=== PATIENT | female | born 1960 | race Caucasian/White ===

== ENCOUNTER 2017-09-08 11:08 | Outpatient (CLI) | payer BC ==
[2017-09-08 12:06] LABS: #Basophils 0.1 thou/uL (0.0-0.2); #Eosinphils 0.1 thou/uL (0.0-0.7); #Lymphocytes 1.9 thou/uL (1.20-3.40); #Monocytes 0.6 thou/uL (0.11-0.59); #Neutrophils 4.4 thou/uL (1.40-6.50); %Basophils 1.4 % (0.0-1.0); %Eosinophils 1.5 % (0.0-10.0); %Lymphocytes 27.4 % (21.0-51.0); %Monocytes 7.7 % (0.0-10.0); Hemoglobin 13.6 g/dL (12.0-16.0); Mean Corpuscular HGB CONC 35.6 g/dL (32.0-36.0); Mean Corpuscular Hemoglobin 30.3 pg (27.0-31.0); Mean Corpuscular Volume 85.2 fL (78.0-98.0); Mean Platelet Volume 7.4 fL (7.4-10.4); Platelet Count 219 thou/uL (130-400); RBC Distribution Width 11.9 % (11.5-14.5); Red Blood Cell (RBC) Count 4.47 mill/uL (4.20-5.40)
[2017-09-08 12:34] LABS: Anion Gap 10 mmol/L (10-20); BUN (Urea Nitrogen) 10 mg/dL (9.8-20.1); Calc. Creatinine Clearance 0 mL/min (70-130); Calcium 9.3 mg/dL (7.8-10.44); Carbon Dioxide 27 mmol/L (22-29); Chloride 106 mmol/L (98-107); Estimated GFR-MDRD 79; Glucose 102 mg/dL (70-105); Potassium 4.2 mmol/L (3.5-5.1); Sodium 139 mmol/L (136-145)
--- NOTE | 2017-09-08 15:41 | EKG ---
Test Reason : Blood Pressure : / mmHG Vent. Rate : 053 BPM Atrial Rate : 053 BPM P-R Int : 140 ms QRS Dur : 094 ms QT Int : 406 ms P-R-T Axes : 041 056 035 degrees QTc Int : 380 ms Sinus bradycardia Cannot rule out Anterior infarct , age undetermined Abnormal ECG No previous ECGs available Confirmed by AUSTIN FREY, DR. Ray (4) on 09/08/2017 3:41:21 PM Referred By: ENDA Confirmed By:DR. Cory AVILA MD
== END 2017-09-08 11:09 | disposition home or self-care (01) ==
LOC: LABBT 11:08
PROVIDERS: ATTEND Specialist
DX: Z01.818 Encounter for other preprocedural examination (principal); Z91.89 Other specified personal risk factors, not elsewhere classified
CPT/HCPCS: 80048; 85025; 93005; 93010

== ENCOUNTER 2017-09-09 06:03 | Inpatient (IN) | payer BC ==
[2017-09-08 11:24] VITALS: BMI 29.4
[2017-09-09] MEDS ORDERED: Levofloxacin 500 mg/D5W 100 ml Premix Bag ONE (06:41)
[2017-09-09] MEDS ORDERED: Ketorolac Tromethamine 30 MG/ML VIAL ONE (06:41)
[2017-09-09] MEDS ORDERED: Isosulfan Blue 50 MG/5 ML VIAL ONE (06:43)
[2017-09-09] MEDS ORDERED: Bupivacaine/Epinephrine 0.25% 30 ML VIAL ONE (06:43)
[2017-09-09] MEDS ORDERED: Fentanyl 250 MCG/5 ML VIAL ONE (07:00)
[2017-09-09] MEDS ORDERED: Midazolam HCl 2 mg/2 ml Vial ONE (07:01)
[2017-09-09] MEDS ORDERED: Promethazine HCl 25 MG/ML VIAL ONE (11:50)
[2017-09-09] MEDS ORDERED: Fentanyl 100 MCG/2 ML VIAL ONE (12:25)
[2017-09-09] MEDS ORDERED: Promethazine HCl 25 MG/ML VIAL IM PRN (14:02)
[2017-09-09] MEDS ORDERED: Dextrose 5% in Water 1,000 ML IV PRN (14:02)
[2017-09-09] MEDS ORDERED: Ondansetron HCl/PF 4 MG/2 ML Vial IVP PRN (14:02)
[2017-09-09] MEDS ORDERED: Morphine 4 MG/ML VIAL SLOW IVP PRN (14:02)
[2017-09-09] MEDS ORDERED: HYDROcodone/Acetaminophen 7.5/325 mg Tablet PO PRN ×2 (14:02)
[2017-09-09] MEDS ORDERED: hydrALAZINE 20 MG/ML VIAL SLOW IVP PRN (14:02)
[2017-09-09] MEDS ORDERED: Dextrose 50% Abboject 50 ML SYRINGE SLOW IVP PRN (14:02)
[2017-09-09] MEDS ORDERED: traMADol HCl 50 MG TAB PO PRN (14:31)
[2017-09-09] MEDS: D5 1/2 NS w/20 mEq KCL 1,000 ML IV SCH (15:03)
[2017-09-09] MEDS: Ketorolac Tromethamine 30 MG/ML VIAL IVP SCH (17:28)
[2017-09-09] MEDS: Famotidine 20 MG TAB PO SCH (21:21)
[2017-09-09] MEDS: Acetaminophen 1,000 MG in Premix Bag 1 BAG IVPB SCH (21:24)
[2017-09-10] MEDS: Acetaminophen 1,000 MG in Premix Bag 1 BAG IVPB SCH ×2 (04:04→09:57)
[2017-09-10] MEDS: D5 1/2 NS w/20 mEq KCL 1,000 ML IV SCH (04:05)
[2017-09-10 04:22] LABS: #Lymphocytes 1.7 thou/uL (1.20-3.40); #Neutrophils 11.7 thou/uL (1.40-6.50); %Basophils 0.2 % (0.0-1.0); %Eosinophils 0.1 % (0.0-10.0); %Lymphocytes 11.7 % (21.0-51.0); %Monocytes 7.1 % (0.0-10.0); %Neutrophils 80.9 % (42.0-75.0); Hemoglobin 11.2 g/dL (12.0-16.0); Mean Corpuscular HGB CONC 35.6 g/dL (32.0-36.0); Mean Corpuscular Hemoglobin 30.4 pg (27.0-31.0); Mean Corpuscular Volume 85.5 fL (78.0-98.0); Mean Platelet Volume 7.1 fL (7.4-10.4); Platelet Count 202 thou/uL (130-400); RBC Distribution Width 11.8 % (11.5-14.5); Red Blood Cell (RBC) Count 3.68 mill/uL (4.20-5.40); White Blood Cell (WBC) Count 14.4 thou/uL (4.8-10.8)
[2017-09-10] MEDS: Ketorolac Tromethamine 30 MG/ML VIAL IVP SCH ×2 (06:29)
[2017-09-10] MEDS: Famotidine 20 MG TAB PO SCH (08:38)
[2017-09-10 09:11] VITALS: BP 132/60; TEMP 98
--- NOTE | 2017-09-11 00:50 | OP ---
DATE OF PROCEDURE: 09/09/2017 PREOPERATIVE DIAGNOSIS: Increased risk of breast cancer. POSTOPERATIVE DIAGNOSIS: Increased risk of breast cancer. OPERATION PERFORMED: Bilateral nipple-sparing mastectomy. SURGEON: Sergio Templeton M.D. ANESTHESIA: General endotracheal. INDICATIONS: The patient underwent genetic evaluation secondary to finding of breast cancer in her m other. Although, she was BRCA negative, her lifetime risk of breast cancer was estimated at 29%. Sh aydee, therefore, desired to pursue bilateral mastectomy with planned reconstruction. She was taken to [facility] operating at this time for bilateral nipple-sparing mastectomy. DESCRIPTION OF OPERATION: Informed consent was obtained. The patient was taken to the operating denisse where general endotracheal anesthesia was obtained with the patient in supine position. The infram ammary crease was marked in both breasts preoperatively. Her bilateral breasts and chest wall were p repped with ChloraPrep and draped in sterile fashion. Attention was turned first to the right breast. An inframammary incision was created beginning about 8 cm from the midline. The length of the incision was about 10 cm in length. Dissection was artem d through skin and subcutaneous tissue. Dissection was initially carried out between the breast and the pectoral fascia, elevating the breast off of the pectoral fascia throughout the entire underside of the breast. I then carefully dissected the cutaneous flap off of the breast, making sure to remov e all breast tissue, but trying to leave an appropriate thickness of subcutaneous fat under the skin. Meticulous hemostasis was maintained with the plasma blade during the dissection. The entire breas t specimen was removed intact. It was tagged for orientation with suture and passed off this patholo gic specimen. The wound was extensively irrigated with saline. Meticulous hemostasis was ensured. A #19 round fluted drain was brought out laterally and inferiorly. It was secured externally with a 3-0 nylon suture. The incision was closed using 3-0 and 4-0 Monocryl suture and Dermabond was placed externally. Attention was turned to the left breast. A mirror image incision was created and the exact same oper ation was performed. There were no complications on either side. Blood loss was minimal during the entire operation. She tolerated the procedure well and remained in stable condition throughout the operation. The chest w as then wrapped circumferentially using the Isoband with gauze, fluffs across bilateral chest wall. She was taken to recovery room in stable condition.
== END 2017-09-10 11:01 | disposition home or self-care (01) | DRG 585 ==
LOC: SDC 06:03 → ONC 13:57
PROVIDERS: ADMIT Specialist; ATTEND Specialist
PROC: 0HTV0ZZ Resection of Bilateral Breast, Open Approach (ICD-10-PCS; principal; 2017-09-09)
DX: Z40.01 Encounter for prophylactic removal of breast (principal); Z80.3 Family history of malignant neoplasm of breast
CPT/HCPCS: 36415; 85025; J0131; J1885; J1956; J2250; J2550; J3010; Q9968

== ENCOUNTER 2017-10-15 11:00 | Day surgery (SDC) | payer BC ==
[2017-10-14 13:59] VITALS: BMI 29.1
[2017-10-15] MEDS ORDERED: Clindamycin/D5W 900 mg/50 ml Premix Bag ONE (11:48)
[2017-10-15] MEDS ORDERED: Heparin 5,000 UNITS/ML VIAL ONE (11:48)
[2017-10-15] MEDS ORDERED: Levofloxacin 500 mg/D5W 100 ml Premix Bag ONE (11:48)
[2017-10-15] MEDS ORDERED: Sodium Chloride 0.9% 20 ML ONE (11:58)
[2017-10-15] MEDS ORDERED: Bupivacaine/Epinephrine 0.25% 30 ML VIAL ONE (11:58)
[2017-10-15] MEDS ORDERED: Gentamicin 80 MG/2 ML VIAL ONE ×2 (11:58→14:12)
[2017-10-15] MEDS ORDERED: Fentanyl 100 MCG/2 ML VIAL ONE (12:21)
[2017-10-15] MEDS ORDERED: Midazolam HCl 2 mg/2 ml Vial ONE (12:21)
[2017-10-15] MEDS ORDERED: Fentanyl 250 MCG/5 ML VIAL ONE (12:55)
[2017-10-15] MEDS ORDERED: Promethazine HCl 25 MG/ML VIAL ONE (12:56)
[2017-10-15] MEDS ORDERED: traMADol HCl 50 MG TAB ONE (18:05)
--- NOTE | 2017-10-15 18:45 | OP ---
DATE OF PROCEDURE: 10/15/2017 PREOPERATIVE DIAGNOSES: 1. Breast cancer. 2. Status post bilateral mastectomy. POSTOPERATIVE DIAGNOSES: 1. Breast cancer. 2. Status post bilateral mastectomy. PROCEDURES: 1. Bilateral placement of tissue inventory worker (43632.50). 2. Placement of Strattice acellular dermal matrix (8 x 20 cm per side, 320 cm2 total). PROCEDURE IN DETAIL: Following induction of adequate anesthesia, the patient was prepped and draped in the usual sterile fashion in the supine position. The existing inframammary crease scar was incis ed. Dissection was carried sharply down through the subcutaneous tissue to the underlying pectoralis fascia. Subsequently, an adequate submuscular pocket was created with release of the inferior attac hments of the pectoralis major muscle. The pocket was copiously irrigated and inspected for meticulo us hemostasis prior to donning new gloves and putting a skin barrier down. The Strattice was placed along the inferior hemisphere of the tissue inventory worker and secured at the 3 and 9 o'clock suture tabs a s well as inferiorly at the inframammary crease. It was secured anteriorly to the flap as well. The Strattice was secured with 2-0 PDS suture. The incision was closed with 3-0 PDS suture and 3-0 [place] cryl suture. The tissue inventory worker was accessed anteriorly and filled to a total volume of 250 mL of n ormal saline. A similar procedure was done on each side except for the right pectoralis major was into 2 leaves of muscle that were repaired anteriorly with 2-0 PDS suture. The patient tolerated the proced ure well.
== END 2017-10-15 18:30 | disposition home or self-care (01) ==
LOC: SDC 11:00
PROVIDERS: ATTEND Plastic Surgery
PROC: 0HHV0NZ Insertion of Tissue Expander into Bilateral Breast, Open Approach (ICD-10-PCS; principal; 2017-10-15)
DX: Z42.1 Encounter for breast reconstruction following mastectomy (principal); Z85.3 Personal history of malignant neoplasm of breast; Z79.899 Other long term (current) drug therapy; Z88.0 Allergy status to penicillin; Z88.1 Allergy status to other antibiotic agents; Z88.2 Allergy status to sulfonamides; Z90.13 Acquired absence of bilateral breasts and nipples; Z90.49 Acquired absence of other specified parts of digestive tract
CPT/HCPCS: A4216; J1580; J1644; J1956; J2250; J2550; J3010; J3370; J3490

== ENCOUNTER 2017-12-01 11:03 | Inpatient (IN) | payer BC ==
[2017-12-01 12:16] LABS: #Basophils 0.2 thou/uL (0.0-0.2); #Eosinphils 0.2 thou/uL (0.0-0.7); #Lymphocytes 2.1 thou/uL (1.20-3.40); #Monocytes 1.2 thou/uL (0.11-0.59); #Neutrophils 14.6 thou/uL (1.40-6.50); %Basophils 0.8 % (0.0-1.0); %Lymphocytes 11.7 % (21.0-51.0); %Monocytes 6.5 % (0.0-10.0); %Neutrophils 79.9 % (42.0-75.0); Hemoglobin 13.2 g/dL (12.0-16.0); Mean Corpuscular HGB CONC 32.7 g/dL (32.0-36.0); Mean Corpuscular Hemoglobin 26.8 pg (27.0-31.0); Mean Corpuscular Volume 81.9 fL (78.0-98.0); Mean Platelet Volume 6.5 fL (7.4-10.4); Platelet Count 363 thou/uL (130-400); RBC Distribution Width 11.6 % (11.5-14.5); Red Blood Cell (RBC) Count 4.92 mill/uL (4.20-5.40); White Blood Cell (WBC) Count 18.3 thou/uL (4.8-10.8)
[2017-12-01 12:27] LABS: ALT (SGPT) 25 U/L (8-55); AST (SGOT) 15 U/L (5-34); Alkaline Phosphatase 79 U/L (40-150); Anion Gap 15 mmol/L (10-20); BUN (Urea Nitrogen) 11 mg/dL (9.8-20.1); Bilirubin, Total 0.5 mg/dL (0.2-1.2); Calc. Creatinine Clearance 0 mL/min (70-130); Calcium 9.7 mg/dL (7.8-10.44); Carbon Dioxide 26 mmol/L (22-29); Chloride 100 mmol/L (98-107); Estimated GFR-MDRD 78; Globulin 4.2 g/dL (2.4-3.5); Glucose 108 mg/dL (70-105); Potassium 4.3 mmol/L (3.5-5.1); Protein, Total 8.2 g/dL (6.0-8.3); Sodium 137 mmol/L (136-145)
[2017-12-01] MEDS ORDERED: PROPOFOL 200 MG/20 ML VIAL ONE (14:28)
[2017-12-01] MEDS ORDERED: Ondansetron HCl/PF 4 MG/2 ML Vial ONE (14:28)
[2017-12-01] MEDS ORDERED: Lidocaine 1% PF 5 ML VIAL ONE (14:28)
[2017-12-01] MEDS ORDERED: Metoclopramide HCl 10 MG/2 ML VIAL ONE (14:28)
[2017-12-01] MEDS ORDERED: Acetaminophen 500 MG TAB ONE (14:47)
--- NOTE | 2017-12-01 15:47 | ULT ---
BILATERAL BREAST ULTRASOUND: 12/01/17 HISTORY: Patient is status post mastectomy with placement of expanders in August. Erythema and elevated white bl ood cell count. COMPARISON: None. TECHNIQUE: Targeted sonographic imaging in the left and right breast was performed. Static images are reviewed. FINDINGS: RIGHT BREAST: There is evidence of fluid echotexture, complex in nature, beneath the subcutaneous fat and superfici al to the library cataloging technician. The fluid tracks along the library cataloging technician. A well contained fluid collection, compatibl e with abscess is not seen. LEFT BREAST: In the left breast, there is complex fluid attenuation that is in between layers of the subcutaneous fat and to a lesser extent superficial to the library cataloging technician. This fluid is superficial to the library cataloging technician at the 9 o'clock position. A well contained abscess is not appreciated. IMPRESSION: Fluid in the left and right chest wall which is presumed to be infected fluid until proven otherwise. A well defined drainable abscess is not see at this time. Results of the study discussed with Dr. Perez at 12/01/17 at 1:[address] Ephraim Ferrer, at 2:10 p.m. Code CR POS: [facility]
[2017-12-01] MEDS ORDERED: Bupivacaine/Epinephrine 0.25% 30 ML VIAL ONE (16:01)
[2017-12-01] MEDS ORDERED: Gentamicin 80 MG/2 ML VIAL ONE ×2 (16:01→17:12)
[2017-12-01] MEDS ORDERED: Sodium Chloride 0.9% 0 ML ONE (16:02)
[2017-12-01] MEDS ORDERED: Midazolam HCl 2 mg/2 ml Vial ONE (17:02)
[2017-12-01] MEDS ORDERED: Fentanyl 250 MCG/5 ML VIAL ONE (17:02)
[2017-12-01] MEDS ORDERED: Promethazine HCl 25 MG/ML VIAL IM PRN (19:27)
[2017-12-01] MEDS ORDERED: Ondansetron HCl/PF 4 MG/2 ML Vial IVP PRN (19:27)
[2017-12-01] MEDS ORDERED: Promethazine HCl 25 MG/ML VIAL SLOW IVP PRN (19:27)
[2017-12-01] MEDS ORDERED: Fentanyl 100 MCG/2 ML VIAL ONE ×2 (19:30→19:58)
[2017-12-01] MEDS ORDERED: HYDROcodone/Acetaminophen 5/325 mg Tablet PO PRN ×2 (19:44)
[2017-12-01] MEDS: Naproxen 500 MG TAB PO SCH (20:38)
[2017-12-01] MEDS: D5 1/2 NS w/20 mEq KCL 1,000 ML IV SCH (20:40)
[2017-12-01] MEDS ORDERED: traMADol HCl 50 MG TAB PO PRN ×2 (21:33)
[2017-12-01] MEDS: Aztreonam 2 GM in Sodium Chloride 0.9% 100 ML IVPB SCH (21:43)
--- NOTE | 2017-12-02 00:45 | OP ---
PREOPERATIVE DIAGNOSIS: Possible infected bilateral tissue expanders. POSTOPERATIVE DIAGNOSIS: Infected bilateral tissue expanders. PROCEDURE: Bilateral removal of tissue expanders. INDICATIONS FOR PROCEDURE: The patient is a 57-year-old female approximately 6 weeks status post bilateral tissue welding setter placement. Last week, the patient developed a milia-type rash over her breasts. At the time, she felt very good. She was evaluated in the ER and found to have contact dermatitis. She was given steroids and discharged to home. Her breasts only had a very small amount of erythema. She represented to clinic today, 12/01/2017. The patient had diarrhea, nausea, and vomiting, and general malaise. She has been afebrile. Her white blood count was 18 and fluid was noted this time in the periprosthetic space. She was therefore taken to the operating room. On exploration, there was pus found on each side. The decision was made to remove the expanders. PROCEDURE IN DETAIL: Following induction of adequate anesthesia, the patient was prepped and draped in the usual sterile fashion in the supine position. The patient was prepped and draped in usual sterile fashion in the supine position. Attention was first turned to the left breast. The existing inframammary crease scar was incised. Dissection was carried sharply down through the subcutaneous tissue to the underlying periprosthetic space. Purulent fluid was noted. This was cultured by swab as well as a direct sample. The patient had received 1 gram of vancomycin already. The welding setter was deflated and removed. The strattice an inferior sling was also removed. The meticulous hemostasis was achieved followed by copious irrigation with pulsatile irrigation. Resorbable beads of vancomycin and gentamicin were then placed in the pocket as well as a drain. The incision was closed with 3-0 PDS suture and 3-0 Monocryl suture. Similar procedure and similar findings were then performed on the right side. The patient tolerated the procedure well. JACKIE
[2017-12-02 01:22] VITALS: BMI 27.0
[2017-12-02] MEDS: D5 1/2 NS w/20 mEq KCL 1,000 ML IV SCH ×3 (05:05→21:17)
[2017-12-02] MEDS: Aztreonam 2 GM in Sodium Chloride 0.9% 100 ML IVPB SCH ×2 (05:06→15:42)
[2017-12-02 05:16] LABS: White Blood Cell (WBC) Count 15.3 thou/uL (4.8-10.8)
[2017-12-02 05:24] LABS: ALT (SGPT) 25 U/L (8-55); AST (SGOT) 17 U/L (5-34); Alkaline Phosphatase 67 U/L (40-150); Anion Gap 9 mmol/L (10-20); BUN (Urea Nitrogen) 7 mg/dL (9.8-20.1); Bilirubin, Total 0.4 mg/dL (0.2-1.2); Calc. Creatinine Clearance 100 mL/min (70-130); Calcium 8.7 mg/dL (7.8-10.44); Carbon Dioxide 28 mmol/L (22-29); Chloride 104 mmol/L (98-107); Estimated GFR-MDRD 79; Glucose 132 mg/dL (70-105); Potassium 4.7 mmol/L (3.5-5.1); Sodium 136 mmol/L (136-145)
[2017-12-02] MEDS: Naproxen 500 MG TAB PO SCH ×2 (08:31→21:15)
[2017-12-02] MEDS: Vancomycin HCl 1 GM in Premix Bag 1 BAG IVPB SCH ×2 (08:33→21:15)
[2017-12-02] MEDS ORDERED: VANCOMYCIN IVPB PRN (15:40)
[2017-12-02] MEDS ORDERED: diphenhydrAMINE 25 MG CAP PO PRN (20:16)
[2017-12-02] MEDS: Acetaminophen 325 MG TAB PO PRN (22:23)
--- NOTE | 2017-12-02 22:48 | CON ---
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 HISTORY OF PRESENT ILLNESS: A 57-year-old who has a history of an increased risk of breast cancer and type 2 diabetes as well as colon cancer with resection in the past who decided to have prophylactic bilateral mastectomy in view of the enhanced risk. This was carried out in August and then in September she had expanders placed and unfortunately she developed inflammatory process. Dr. Ferrer has just finished removing the expanders. Cultures have been submitted. She is feeling better with mild pain. She still has drains bilaterally. No headaches. No shortness of breath or chest pain, no back pain. No abdominal pain, diarrhea, or genitourinary symptoms. No joint symptoms. PAST MEDICAL HISTORY: Type 2 diabetes, colon cancer, cholecystectomy, ovarian resection, sinus surgeries. FAMILY HISTORY: Breast cancer in the mother. ALLERGIES: PENICILLIN and CEPHALOSPORINS with an anaphylactic type of reaction according to the patient. Also allergy to SULFA DRUGS. SOCIAL HISTORY: Never a smoker. . CURRENT MEDICATIONS: Includes Tylenol, [place], Naprosyn, tramadol, vancomycin. PHYSICAL EXAMINATION: VITAL SIGNS: Totally normal. She is afebrile. She has drains in the sites of the mastectomies. HEENT: Ocular movements conjugate. Oral cavity normal. NECK: Supple. LUNGS: Symmetrically breath sounds. HEART: S1, S2, regular rate. ABDOMEN: Soft, nondistended or tender. No ascites. No bladder distention. EXTREMITIES: No joint inflammatory activity. NEUROLOGIC: Cognitive function appears to be intact. She moves all extremities equally. LABORATORY DATA: White cell count 18,000 down to 15, hemoglobin 13, platelets 363. Chemistry was essentially normal. Glucose was 132, albumin down to 3.0. Microbiology with 4 different samples with group B Streptococcus was retrieved. ASSESSMENT AND PLAN: Prophylactic mastectomies with expanders and now infection secondary to Strep agalactiae. Room Service Waiter has been removed and due to the severe allergy history to beta-lactams, she will continue on vancomycin alone. Probably we will need a PICC line in continuation of treatment for a couple weeks or to allow resolution of the infectious process. [facility]
[2017-12-03] MEDS: D5 1/2 NS w/20 mEq KCL 1,000 ML IV SCH ×3 (04:44→18:47)
[2017-12-03 05:24] LABS: #Basophils 0.1 thou/uL (0.0-0.2); #Eosinphils 0.6 thou/uL (0.0-0.7); #Monocytes 0.7 thou/uL (0.11-0.59); #Neutrophils 6.1 thou/uL (1.40-6.50); %Basophils 0.5 % (0.0-1.0); %Eosinophils 6.3 % (0.0-10.0); %Lymphocytes 21.5 % (21.0-51.0); %Monocytes 7.1 % (0.0-10.0); %Neutrophils 64.6 % (42.0-75.0); Hemoglobin 10.3 g/dL (12.0-16.0); Mean Corpuscular HGB CONC 32.6 g/dL (32.0-36.0); Mean Corpuscular Hemoglobin 28.1 pg (27.0-31.0); Mean Corpuscular Volume 86.2 fL (78.0-98.0); Mean Platelet Volume 6.2 fL (7.4-10.4); Platelet Count 351 thou/uL (130-400); RBC Distribution Width 11.8 % (11.5-14.5); Red Blood Cell (RBC) Count 3.66 mill/uL (4.20-5.40); White Blood Cell (WBC) Count 9.4 thou/uL (4.8-10.8)
[2017-12-03 08:20] LABS: Vancomycin, Trough 11.9 ug/mL
[2017-12-03] MEDS: Naproxen 500 MG TAB PO SCH ×2 (09:29→21:22)
[2017-12-03] MEDS: Vancomycin HCl 1.25 GM in Sodium Chloride 0.9% 250 ML 250 ML IVPB SCH ×2 (09:31→18:41)
--- NOTE | 2017-12-03 15:45 | PRG ---
DATE OF SERVICE: 12/03/2017 SUBJECTIVE: She is feeling well. She had a PICC line inserted. No chest pain, no abdominal pain or diarrhea. No genitourinary symptoms. PHYSICAL EXAMINATION: VITAL SIGNS: Normal. LUNGS: Clear. CARDIOVASCULAR: S1, S2, regular rate. Double lumen PICC line inserted in left upper extremity. ABDOMEN: Soft, not distended. No new abnormalities. LABORATORY DATA: White cell count is down to 9.4, hemoglobin 10.3, platelets 351. Chemistries not r emarkable. Microbiology with group B strep in 4 different samples. ASSESSMENT: Elective mastectomies with accountant machine processing infection following reconstruction. Expanders have been removed. The patient still has drains in place and will be discharged on IV vancomycin for 2 we eks. Follow up labs in the outpatient setting.
--- NOTE | 2017-12-03 16:10 | SPC ---
LEFT PICC LINE WITH ULTRASOUND GUIDANCE: 12/03/17 HISTORY: Mastectomy. Infection. COMPARISON: None. EXPOSURE: 0.8 minutes. 4251 mGy*cm2. FINDINGS: Successful left upper extremity PICC line placement with ultrasound guidance. A 41 cm dual lumen 5 Fr ench catheter terminates in the SVC/right atrial junction. Both lumens flush and aspirate without dif ficulty. TECHNIQUE: Consent obtained to perform a left upper extremity PICC line placement. Left arm was prepped and drap ed in a sterile fashion. Using ultrasound guidance, micropuncture needle was used to cannulate the ba silic vein. A 0.018 guide wire was advanced through the knee to the level of the superior vena cava. Under fluoroscopy, the wire was advanced to the inferior vena cava to document venous access. Wire wa s subsequently pulled back to the SVC/right atrial junction. Tract is dilated. Dual lumen 5 [place] ca theter was advanced over the wire. Both lumens flush and aspirate without difficulty. IMPRESSION: Successful left upper extremity PICC line placement with ultrasound guidance. POS: [facility]
[2017-12-03] MEDS: Acetaminophen 325 MG TAB PO PRN (17:23)
[2017-12-03 19:59] VITALS: BP 120/79; TEMP 98.1
[2017-12-07 14:19] LABS: Fungus Stain Final report (.)
[2017-12-07 14:19] LABS: Fungus Stain Final report (.)
== END 2017-12-03 21:20 | disposition home health service (06) | DRG 909 ==
LOC: SCSER 11:03 → SDC 14:21 → SURG A 20:12
PROVIDERS: ADMIT Plastic Surgery; ATTEND Plastic Surgery
PROC: 0HPU0NZ Removal of Tissue Expander from Left Breast, Open Approach (ICD-10-PCS; principal; 2017-12-01)
PROC: 0HPT0NZ Removal of Tissue Expander from Right Breast, Open Approach (ICD-10-PCS; 2017-12-01)
PROC: 02HV33Z Insertion of Infusion Device into Superior Vena Cava, Percutaneous Approach (ICD-10-PCS; 2017-12-03)
PROC: B548ZZA Ultrasonography of Superior Vena Cava, Guidance (ICD-10-PCS; 2017-12-03)
DX: T85.79XA Infection and inflammatory reaction due to other internal prosthetic devices, implants and grafts, initial encounter (principal); E11.9 Type 2 diabetes mellitus without complications; Z88.0 Allergy status to penicillin; Z88.2 Allergy status to sulfonamides; Z90.13 Acquired absence of bilateral breasts and nipples; Z85.038 Personal history of other malignant neoplasm of large intestine; Z90.49 Acquired absence of other specified parts of digestive tract; Z80.3 Family history of malignant neoplasm of breast
CPT/HCPCS: 36415; 36569; 76641; 80053; 80202; 83605; 85025; 85048; 87040; 87070; 87077; 87102; 87116; 87205; 87206; 96365; C1713; C1751; J1580; J2001; J2250; J2405; J2704; J2765; J3010; J3370; J3490; J7050

== ENCOUNTER 2018-06-17 10:45 | Day surgery (SDC) | payer BC ==
[2018-06-16 15:23] VITALS: BMI 28.2
[2018-06-17] MEDS ORDERED: Clindamycin/D5W 900 mg/50 ml Premix Bag ONE (11:13)
[2018-06-17] MEDS ORDERED: Levofloxacin 500 mg/D5W 100 ml Premix Bag ONE (11:13)
[2018-06-17] MEDS ORDERED: Heparin 5,000 UNITS/ML VIAL ONE (11:16)
[2018-06-17] MEDS ORDERED: Sodium Chloride 0.9% 0 ML ONE (12:12)
[2018-06-17] MEDS ORDERED: Bupivacaine/Epinephrine 0.25% 30 ML VIAL ONE (12:12)
[2018-06-17] MEDS ORDERED: Gentamicin 80 MG/2 ML VIAL ONE ×3 (12:12→15:13)
[2018-06-17] MEDS ORDERED: Dexamethasone 4 mg/ml Vial ONE (12:13)
[2018-06-17] MEDS ORDERED: Fentanyl 250 MCG/5 ML VIAL ONE (12:41)
[2018-06-17] MEDS ORDERED: Sodium Chloride 0.9% 20 ML ONE (13:19)
[2018-06-17] MEDS ORDERED: Ondansetron PF 4 MG/2 ML Vial ONE (15:27)
[2018-06-17] MEDS ORDERED: PHENYLEPHRINE-NS 100 MCG/ML 10 ML SYRINGE ONE (15:27)
[2018-06-17] MEDS ORDERED: Dexamethasone 20 MG/5 ML VIAL ONE ×2 (15:27)
[2018-06-17] MEDS ORDERED: ePHEDrine 50 MG/ML VIAL ONE (15:27)
[2018-06-17] MEDS ORDERED: PROPOFOL 200 MG/20 ML VIAL ONE (15:27)
[2018-06-17] MEDS ORDERED: Glycopyrrolate 0.2 MG/ML 5 ML SYRINGE ONE (15:27)
[2018-06-17] MEDS ORDERED: Rocuronium Bromide 10 MG/ML (10ML VIAL) ONE (15:27)
[2018-06-17] MEDS ORDERED: Ketorolac Tromethamine 30 MG/ML VIAL ONE (15:27)
[2018-06-17] MEDS ORDERED: Promethazine HCl 25 MG/ML VIAL ONE (16:17)
[2018-06-17] MEDS ORDERED: Fentanyl 100 MCG/2 ML VIAL ONE (16:28)
--- NOTE | 2018-06-20 13:08 | OP ---
DATE OF PROCEDURE: 06/17/2018 PREOPERATIVE DIAGNOSES: 1. Breast cancer. 2. Status post bilateral tissue senior validation engineer explantation. POSTOPERATIVE DIAGNOSES: 1. Breast cancer. 2. Status post bilateral tissue senior validation engineer explantation. PROCEDURE PERFORMED: Bilateral tissue senior validation engineer placement. DESCRIPTION OF PROCEDURE: Following induction of adequate anesthesia, the patient was prepped and draped in usual sterile fashion in supine position. The existing inframammary crease scar was incised. Dissection was carried sharply down through the subcutaneous tissue. The previous subpectoral plane was identified. This was reopened. A significant scarring was noted throughout. The pocket was entirely collapsed. After the pocket was recreated and copiously irrigated and inspected for meticulous hemostasis, antibiotic beads containing vancomycin and gentamicin were placed. The tissue senior validation engineer was then placed. The senior validation engineer placed was a 13.5 cm smooth [place] high-profile and filled to a volume of 300 mL. The pocket was re-inspected for meticulous hemostasis prior to closure with 3-0 PDS suture and a 3-0 Monocryl suture. Similar procedure was done on each side. The patient tolerated the procedure well. Job ID: [id number]
== END 2018-06-17 18:50 | disposition home or self-care (01) ==
LOC: SDC 10:45
PROVIDERS: ATTEND Plastic Surgery
PROC: 0HHV0NZ Insertion of Tissue Expander into Bilateral Breast, Open Approach (ICD-10-PCS; principal; 2018-06-17)
DX: Z42.1 Encounter for breast reconstruction following mastectomy (principal); E66.3 Overweight; Z68.28 Body mass index [BMI] 28.0-28.9, adult; Z79.899 Other long term (current) drug therapy; Z88.0 Allergy status to penicillin; Z88.1 Allergy status to other antibiotic agents; Z88.2 Allergy status to sulfonamides; Z85.038 Personal history of other malignant neoplasm of large intestine; Z80.3 Family history of malignant neoplasm of breast; Z90.13 Acquired absence of bilateral breasts and nipples; Z90.49 Acquired absence of other specified parts of digestive tract
CPT/HCPCS: 93005; 93010; C1713; J1100; J1580; J1644; J1885; J1956; J2405; J2550; J2704; J3010; J3370; J3490

== ENCOUNTER 2018-12-19 05:59 | Day surgery (SDC) | payer BC ==
[2018-12-16 08:55] VITALS: BMI 28.3
[2018-12-19] MEDS ORDERED: Clindamycin/D5W 900 mg/50 ml Premix Bag ONE (06:25)
[2018-12-19] MEDS ORDERED: Levofloxacin 500 mg/D5W 100 ml Premix Bag ONE (06:25)
[2018-12-19] MEDS ORDERED: Heparin 5,000 UNITS/ML VIAL ONE (06:25)
[2018-12-19] MEDS ORDERED: Fentanyl 250 MCG/5 ML VIAL ONE (06:33)
[2018-12-19] MEDS ORDERED: Bupivacaine HCl 0.25%/Epi 0.0005/PF 10 ML VIAL FS ONE ×2 (06:48→06:54)
[2018-12-19] MEDS ORDERED: Bacitracin Zinc Ointment 30 gm TUBE ONE (06:48)
[2018-12-19] MEDS ORDERED: Gentamicin 80 MG/2 ML VIAL ONE (06:48)
[2018-12-19] MEDS ORDERED: Sodium Chloride 0.9% 0 ML ONE ×2 (06:49→07:43)
[2018-12-19 06:56] LABS: #Basophils 0.1 thou/uL (0.0-0.2); #Eosinphils 0.1 thou/uL (0.0-0.7); #Monocytes 0.6 thou/uL (0.11-0.59); #Neutrophils 4.9 thou/uL (1.40-6.50); %Basophils 1.1 % (0.0-1.0); %Eosinophils 1.3 % (0.0-10.0); %Lymphocytes 25.9 % (21.0-51.0); %Monocytes 7.8 % (0.0-10.0); Hemoglobin 12.8 g/dL (12.0-16.0); Mean Corpuscular HGB CONC 34.9 g/dL (32.0-36.0); Mean Corpuscular Hemoglobin 28.9 pg (27.0-31.0); Mean Corpuscular Volume 82.8 fL (78.0-98.0); Mean Platelet Volume 7.6 fL (7.4-10.4); Platelet Count 233 thou/uL (130-400); RBC Distribution Width 11.8 % (11.5-14.5); Red Blood Cell (RBC) Count 4.44 mill/uL (4.20-5.40); White Blood Cell (WBC) Count 7.6 thou/uL (4.8-10.8)
[2018-12-19] MEDS ORDERED: Lidocaine 1% (PF) 30 ML VIAL ONE (07:04)
[2018-12-19] MEDS ORDERED: EPINEPHrine 1 MG/ML AMP ONE (07:04)
[2018-12-19 07:16] LABS: Anion Gap 11 mmol/L (10-20); BUN (Urea Nitrogen) 11 mg/dL (9.8-20.1); Calc. Creatinine Clearance 102 mL/min (70-130); Calcium 9.3 mg/dL (7.8-10.44); Carbon Dioxide 25 mmol/L (22-29); Chloride 107 mmol/L (98-107); Estimated GFR-MDRD 80; Glucose 118 mg/dL (70-105); Sodium 139 mmol/L (136-145)
[2018-12-19] MEDS ORDERED: Meropenem 1 GM in Premix Bag 1 BAG IVPB SCH (07:45)
[2018-12-19] MEDS ORDERED: SUGAMMADEX SODIUM 200 MG/2 ML VIAL ONE (09:37)
[2018-12-19] MEDS ORDERED: Promethazine HCl 25 MG/ML VIAL ONE (10:01)
[2018-12-19] MEDS ORDERED: Morphine Sulfate 2 MG/ML SYRINGE SLOW IVP PRN (10:10)
[2018-12-19] MEDS ORDERED: Ondansetron HCl/PF 4 MG/2 ML Vial IVP PRN (10:10)
[2018-12-19] MEDS ORDERED: PACU-Morphine 4MG/ML VIAL SLOW IVP PRN (10:10)
[2018-12-19] MEDS ORDERED: Promethazine HCl 25 MG/ML VIAL IM/IV PRN (10:10)
--- NOTE | 2018-12-19 14:14 | OP ---
DATE OF PROCEDURE: 12/19/2018 PREOPERATIVE DIAGNOSES: 1. Breast cancer. 2. Status post breast cancer reconstruction. POSTOPERATIVE DIAGNOSES: 1. Breast cancer. 2. Status post breast cancer reconstruction. PROCEDURES PERFORMED: 1. Bilateral exchange of tissue expanders for breast prosthesis with capsule work (17978.50). 2. Bilateral fat grafting (61223). OPERATIVE FINDINGS: Left breast implant, [place], reference #[id number], serial #[id number]. Right breast implant, reference #[id number], serial #[id number]. DESCRIPTION OF PROCEDURE: Following the induction of adequate anesthesia, the patient was prepped and draped in usual sterile fashion in the supine position. The existing inframammary crease scars were incised. Dissection was carried sharply down through the subcutaneous tissue to the underlying capsule, which was opened. The existing slagger was deflated and removed. The pocket was then opened superiorly from approximately 9 o'clock to 12 o'clock to 3 o'clock to allow for adequate redraping of the tissue over the new implant. The pocket was then copiously irrigated with antibiotic solution and dilute Betadine solution prior to placing antibiotic beads of vancomycin, meropenem, followed by the above breast implant. The pocket was inspected for meticulous hemostasis prior to closure in layers with 3-0 PDS suture for the capsule and 3-0 Monocryl suture for the skin. Similar procedure was done on each side. Attention was turned to the fat grafting. The abdomen was infiltrated with 1:1,000,000 epinephrine solution. After this had adequate time to take effect, traditional liposuction was done with fat collection. This was allowed to separate by gravity prior to decanting and then infiltrating into each medial inner lower medial breast quadrant via separate stab incisions. The similar procedure was done on each side. Job ID: [id number]
[2018-12-19] MEDS ORDERED: Ondansetron PF 4 MG/2 ML Vial ONE (14:51)
[2018-12-19] MEDS ORDERED: PROPOFOL 200 MG/20 ML VIAL ONE (14:51)
[2018-12-19] MEDS ORDERED: Rocuronium Bromide 10 MG/ML (10ML VIAL) ONE (14:51)
[2018-12-19] MEDS ORDERED: Dexamethasone 20 MG/5 ML VIAL ONE (14:51)
[2018-12-19] MEDS ORDERED: ePHEDrine/0.9% NaCl/PF SYRINGE 50 mg/10 ml ONE (14:51)
[2018-12-19] MEDS ORDERED: PHENYLEPHRINE-NS 100 MCG/ML 10 ML SYRINGE ONE (14:51)
[2018-12-19] MEDS ORDERED: Glycopyrrolate 0.2 MG/ML 5 ML SYRINGE ONE (14:51)
[2018-12-19] MEDS ORDERED: Lidocaine 1% PF 5 ML VIAL ONE (14:51)
--- NOTE | 2018-12-19 16:24 | EKG ---
Test Reason : PREOP Blood Pressure : / mmHG Vent. Rate : 056 BPM Atrial Rate : 056 BPM P-R Int : 136 ms QRS Dur : 096 ms QT Int : 410 ms P-R-T Axes : 038 060 038 degrees QTc Int : 395 ms Sinus bradycardia When compared with ECG of 17-JUN-2018 11:27, No significant change was found Confirmed by DR. Norma LY (3) on 12/19/2018 4:24:01 PM Referred By: ANUJA Confirmed By:DR. Norma LY
== END 2018-12-19 12:30 | disposition home or self-care (01) ==
LOC: SDC 05:59
PROVIDERS: ATTEND Plastic Surgery
DX: N65.1 Disproportion of reconstructed breast (principal); Z80.3 Family history of malignant neoplasm of breast; Z88.0 Allergy status to penicillin; Z88.1 Allergy status to other antibiotic agents; Z88.2 Allergy status to sulfonamides; Z79.899 Other long term (current) drug therapy
CPT/HCPCS: 80048; 85025; 93005; 93010; C1713; J0131; J0171; J1100; J1580; J1644; J1956; J2001; J2185; J2405; J2550; J2704; J3010; J3370; J3490